=== PATIENT | female | born 1995 | race Two or more races ===

== ENCOUNTER 2024-08-10 16:42 | Emergency (ER) | payer SELFPAY | END 2024-08-10 20:54 | disposition home or self-care (01) | LOC: MW.ED 16:42 | DX: O98.511 Other viral diseases complicating pregnancy, first trimester (principal); U07.1 COVID-19; Z75.8 Other problems related to medical facilities and other health care; Z3A.12 12 weeks gestation of pregnancy; Z88.8 Allergy status to other drugs, medicaments and biological substances | CPT/HCPCS: 87428-QW; 99283 ==

== ENCOUNTER 2025-01-27 | Inpatient (IN) | payer MEDICAID ==
[2025-01-27] MEDS ORDERED: Butorphanol 1 MG/ML SDV IVPUSH PRN (00:31)
[2025-01-27] MEDS ORDERED: Water For Irrigation,Sterile 1,000 ML Container IRR PRN (00:31)
[2025-01-27] MEDS ORDERED: Ondansetron 4 MG/2 ML SDV IVPUSH PRN (00:31)
[2025-01-27] MEDS ORDERED: Sodium Chloride 0.9% 10 ML Syringe FLUSH PRN (00:31)
[2025-01-27] MEDS ORDERED: Carboprost Tromethamine 250 MCG/1 mL Vial IM PRN (00:31)
[2025-01-27] MEDS ORDERED: Sodium Chloride 0.9% 2.5 ML Syringe FLUSH PRN (00:31)
[2025-01-27] MEDS ORDERED: Oxytocin/0.9 % Sodium Chloride 30 UNIT/500 ML BAG IV SCH (00:45)
[2025-01-27 01:08] LABS: MEAN PLATELET VOLUME 13.3 fL (9.4-12.3); NRBC ABSOLUTE 0.00 K/uL (0.00-0.02); NRBC PERCENT 0.0 /100WBC (0.0-0.2); PLATELET COUNT,PLT 281 K/uL (150-400); RED BLOOD CELL COUNT 3.93 M/uL (4.10-5.30); WHITE BLOOD CELL COUNT,WBC 14.90 K/uL (3.9-11.3)
[2025-01-27] MEDS: Lactated Ringers 1,000 ML IV SCH (01:19)
[2025-01-27 01:39] LABS: A/G RATIO 0.6 (0.9-1.6); ALANINE AMINOTRANSFERASE,ALT 97 IU/L (14-63); ASPARTATE AMNIOTRANSFERASE,AST 38 IU/L (15-37); BILIRUBIN TOTAL 0.3 mg/dL (0.2-1.0); BLOOD UREA NITROGEN,BUN 9 mg/dL (7.0-18.0); CARBON DIOXIDE,CO2 23.3 mmol/L (21.0-32.0); CHLORIDE,CL 103 mmol/L (98-107); CREATININE 0.8 mg/dL (0.6-1.0); ESTIMATED GFR 104 mL/min (>60); GLUCOSE RANDOM 133 mg/dL (74-106); POTASSIUM,K 3.5 mmol/L (3.5-5.1); PROTEIN TOTAL,TP 6.7 g/dL (6.4-8.2); SODIUM,NA 137 mmol/L (136-145)
[2025-01-27] MEDS: Oxytocin/0.9 % Sodium Chloride 30 UNIT/500 ML BAG IV SCH (01:46)
[2025-01-27 02:47] LABS: CREATININE,URINE RAND 183.9 mg/dL; PROTEIN CREATININE RATIO,URINE 0.3; PROTEIN,URINE RANDOM 48.2 mg/dL (<11.9)
[2025-01-27] MEDS ORDERED: ePHEDrine 50 MG/ML SDV IVPUSH PRN (07:55)
[2025-01-27] MEDS ORDERED: dexmedeTOMIDine HCl 200 MCG/2 ML SDV EPIDUR SCH (08:00)
[2025-01-27] MEDS: Misoprostol 25 MCG (1/4 of 100 MCG) Tab VAG PRN ×2 (14:15)
[2025-01-27] MEDS: Misoprostol 25 MCG (1/4 of 100 MCG) Tab PO ONE (14:15)
[2025-01-28 11:51] LABS: MEAN PLATELET VOLUME 12.9 fL (9.4-12.3); NRBC ABSOLUTE 0.00 K/uL (0.00-0.02); NRBC PERCENT 0.0 /100WBC (0.0-0.2); PLATELET COUNT,PLT 247 K/uL (150-400); RED BLOOD CELL COUNT 3.98 M/uL (4.10-5.30); WHITE BLOOD CELL COUNT,WBC 10.07 K/uL (3.9-11.3)
[2025-01-28 12:21] LABS: A/G RATIO 0.6 (0.9-1.6); ALANINE AMINOTRANSFERASE,ALT 77.0 IU/L (14-63); ASPARTATE AMNIOTRANSFERASE,AST 48.0 IU/L (15-37); BILIRUBIN TOTAL 0.5 mg/dL (0.2-1.0); BLOOD UREA NITROGEN,BUN 6.0 mg/dL (7.0-18.0); CARBON DIOXIDE,CO2 25.5 mmol/L (21.0-32.0); CHLORIDE,CL 104.0 mmol/L (98-107); CREATININE 0.5 mg/dL (0.6-1.0); EST CRCL DRUG DOSING (CG) 152.08 mL/min; ESTIMATED GFR 132.0 mL/min (>60); GLUCOSE RANDOM 70.0 mg/dL (74-106); POTASSIUM,K 3.8 mmol/L (3.5-5.1); PROTEIN TOTAL,TP 6.2 g/dL (6.4-8.2); SODIUM,NA 139.0 mmol/L (136-145)
[2025-01-28] MEDS: Ropivacaine HCl/PF 400 MG in Premix Bag 1 BAG EPIDUR SCH (18:49)
[2025-01-28] MEDS: Terbutaline 1 MG/ML SDV SUBCUT PRN (20:05)
[2025-01-29] MEDS ORDERED: Benzocaine/Menthol 20%-0.5% Spray 78 GM Cannister TOP PRN (04:14)
[2025-01-29] MEDS ORDERED: Witch Hazel Medicated Pads 40/Jar TOP PRN (04:14)
[2025-01-29] MEDS ORDERED: Aluminum Hydroxide/Magnesium Hydroxide/Simethicone Susp 30 ML Cup PO PRN (04:14)
[2025-01-29] MEDS ORDERED: Lanolin 100% Cream 7 GM Tube TOP PRN (04:14)
[2025-01-29 04:43] LABS: PH,UMBILICAL ARTERIAL 7.31 (7.18-7.38); PH,UMBILICAL VENOUS 7.38 (7.25-7.45)
[2025-01-29 05:53] LABS: MEAN PLATELET VOLUME 13.0 fL (9.4-12.3); NRBC ABSOLUTE 0.00 K/uL (0.00-0.02); NRBC PERCENT 0.0 /100WBC (0.0-0.2); PLATELET COUNT,PLT 229 K/uL (150-400); RED BLOOD CELL COUNT 3.83 M/uL (4.10-5.30); WHITE BLOOD CELL COUNT,WBC 14.18 K/uL (3.9-11.3)
[2025-01-29 06:28] LABS: A/G RATIO 0.6 (0.9-1.6); ALANINE AMINOTRANSFERASE,ALT 61.0 IU/L (14-63); ASPARTATE AMNIOTRANSFERASE,AST 29.0 IU/L (15-37); BILIRUBIN TOTAL 0.4 mg/dL (0.2-1.0); BLOOD UREA NITROGEN,BUN 4.0 mg/dL (7.0-18.0); CARBON DIOXIDE,CO2 21.8 mmol/L (21.0-32.0); CHLORIDE,CL 104.0 mmol/L (98-107); CREATININE 0.5 mg/dL (0.6-1.0); EST CRCL DRUG DOSING (CG) 152.08 mL/min; GLUCOSE RANDOM 97.0 mg/dL (74-106); POTASSIUM,K 3.4 mmol/L (3.5-5.1); PROTEIN TOTAL,TP 5.8 g/dL (6.4-8.2); SODIUM,NA 138.0 mmol/L (136-145)
[2025-01-29 06:34] LABS: ESTIMATED GFR 132.0 mL/min (>60)
[2025-01-30 06:11] LABS: BASOPHILS ABSOLUTE AUTO 0.05 K/uL (0.00-0.20); BASOPHILS PERCENT AUTO 0.7 % (0.0-1.0); EOSINOPHILS ABSOLUTE AUTO 0.20 K/uL (0.00-0.45); EOSINOPHILS PERCENT AUTO 2.8 % (0.0-6.0); IMMATURE GRAN ABSOLUTE AUTO 0.05 K/uL (0.00-0.05); IMMATURE GRAN PERCENT AUTO 0.7 % (0.0-0.4); LYMPHOCYTES ABSOLUTE AUTO 2.22 K/uL (1.00-4.80); LYMPHOCYTES PERCENT AUTO 30.6 % (24.0-44.0); MEAN PLATELET VOLUME 13.7 fL (9.4-12.3); MONOCYTES ABSOLUTE AUTO 0.79 K/uL (0.00-0.80); MONOCYTES PERCENT AUTO 10.9 % (0.0-8.0); NEUTROPHILS ABSOLUTE AUTO 3.95 K/uL (1.80-7.70); NEUTROPHILS PERCENT AUTO 54.3 % (41.0-71.0); NRBC ABSOLUTE 0.00 K/uL (0.00-0.02); NRBC PERCENT 0.0 /100WBC (0.0-0.2); PLATELET COUNT,PLT 247 K/uL (150-400); RED BLOOD CELL COUNT 3.68 M/uL (4.10-5.30); WHITE BLOOD CELL COUNT,WBC 7.26 K/uL (3.9-11.3)
[2025-01-30 06:38] LABS: A/G RATIO 0.6 (0.9-1.6); ALANINE AMINOTRANSFERASE,ALT 52.0 IU/L (14-63); ASPARTATE AMNIOTRANSFERASE,AST 28.0 IU/L (15-37); BILIRUBIN TOTAL 0.2 mg/dL (0.2-1.0); BLOOD UREA NITROGEN,BUN 5.0 mg/dL (7.0-18.0); CARBON DIOXIDE,CO2 24.3 mmol/L (21.0-32.0); CHLORIDE,CL 107.0 mmol/L (98-107); CREATININE 0.6 mg/dL (0.6-1.0); EST CRCL DRUG DOSING (CG) 126.73 mL/min; GLUCOSE RANDOM 78.0 mg/dL (74-106); POTASSIUM,K 4.0 mmol/L (3.5-5.1); PROTEIN TOTAL,TP 5.5 g/dL (6.4-8.2); SODIUM,NA 140.0 mmol/L (136-145)
[2025-01-30 06:39] LABS: ESTIMATED GFR 126.0 mL/min (>60)
[2025-01-30] MEDS: NIFEdipine 30 MG Tab.ER PO ONE (16:56)
== END 2025-01-30 17:00 | disposition home or self-care (01) | DRG 807 ==
LOC: MW.OB → OBSVTOIN 01-29 03:49 → MW.OB 01-29 15:28
PROVIDERS: ADMIT Obstetrics & Gynecology; ATTEND Obstetrics & Gynecology
PROC: 10E0XZZ Delivery of Products of Conception, External Approach (ICD-10-PCS; principal; 2025-01-29)
PROC: 3E0R3BZ Introduction of Anesthetic Agent into Spinal Canal, Percutaneous Approach (ICD-10-PCS; 2025-01-29)
PROC: 3E033VJ Introduction of Other Hormone into Peripheral Vein, Percutaneous Approach (ICD-10-PCS; 2025-01-29)
PROC: 10907ZC Drainage of Amniotic Fluid, Therapeutic from Products of Conception, Via Natural or Artificial Opening (ICD-10-PCS; 2025-01-29)
DX: O76 Abnormality in fetal heart rate and rhythm complicating labor and delivery (principal); Z37.0 Single live birth; O69.2XX0 Labor and delivery complicated by other cord entanglement, with compression, not applicable or unspecified; O64.0XX0 Obstructed labor due to incomplete rotation of fetal head, not applicable or unspecified; F17.200 Nicotine dependence, unspecified, uncomplicated; Z88.8 Allergy status to other drugs, medicaments and biological substances; Z98.890 Other specified postprocedural states; Z79.899 Other long term (current) drug therapy; Z3A.36 36 weeks gestation of pregnancy
CPT/HCPCS: 01967; 36415; 51702; 59025; 59409; 76815; 76815-26; 80053; 82570; 82803; 84156; 85025; 85027; 86592; 86850; 86900; 86901; A9270-GY; J2590; J2795; J3105; J7030; J7120